=== PATIENT | male | born 1960 | race Caucasian/White ===

== ENCOUNTER 2018-08-19 15:36 | Emergency (ER) | payer OTHER ==
[2018-08-19 16:14] VITALS: BP 145/82
[2018-08-19] MEDS ORDERED: Tetan/Diph/Pertus SYR(Tdap)* 0.5 ML SYR(BOOSTRIX) use SYR IM ONE (17:26)
--- NOTE | 2018-08-19 17:27 | UC ---
Laceration HPI - HPI Summary HPI Summary: 58 y/o male presents to the urgent care c/o patient accidentally sliced left lower thigh while at work with a razor blade aroud 3 pm. Bleeding under control. Last tetanus about 7 years ago. - History Of Current Complaint Chief Complaint: UCLaceration Stated Complaint: LEFT THIGH LAC (WC) Time Seen by Provider: 08/19/18 17:25 Pain Intensity: 2 - Allergies/Home Medications Allergies/Adverse Reactions: Allergies Allergy/AdvReac Type Severity Reaction Status Date / Time No Known Allergies Allergy Verified 08/19/18 16:11 Home Medications: Home Medications PARoxetine HCL TAB* [Paxil TAB*] 10 mg PO DAILY 08/19/18 [History Confirmed ] PMH/Surg Hx/FS Hx/Imm Hx - Social History Alcohol Use: Daily Substance Use Type: None Smoking Status (MU): Former Smoker - Immunization History Most Recent Tetanus Shot: 7 years ago Physical Exam Vital Signs: Initial Vital Signs Temp 98.9 F 08/19/18 16:09 Pulse 95 08/19/18 16:09 Resp 20 08/19/18 16:09 BP 145/82 08/19/18 16:09 Pulse Ox 99 08/19/18 16:09 Discharge - Discharge Plan Referrals: Fred Erickson MD [Primary Care Provider] -
[2018-08-19] MEDS ORDERED: Lidocaine 2% W/EPI 1:100,000* 20 ML MDV INJ ONE (17:29)
--- NOTE | 2018-08-19 17:56 | ED ---
Laceration/Wound HPI - HPI Summary HPI Summary: 58 yr old male with left thigh laceration. Onset 3 pm today. He cut it with a utility knife when working. Last TD 7 yr ago. No imparement of ROM of knee or leg. He was cutting water hose and slipped and knife cut through his work pants. - History of Current Complaint Stated Complaint: LEFT THIGH LAC (WC) Time Seen by Provider: 08/19/18 17:25 Pain Intensity: 2 - Allergy/Home Medications Allergies/Adverse Reactions: Allergies Allergy/AdvReac Type Severity Reaction Status Date / Time No Known Allergies Allergy Verified 08/19/18 16:11 Home Medications: Home Medications PARoxetine HCL TAB* [Paxil TAB*] 10 mg PO DAILY 08/19/18 [History Confirmed ] PMH/Surg Hx/FS Hx/Imm Hx Infectious Disease History: No Infectious Disease History: Denies: Traveled Outside the [place] in Last 30 Days - Family History Known Family History: Positive: Other - pneumonia - Social History Occupation: Employed Full-time Lives: With Family Alcohol Use: Daily Substance Use Type: Reports: None Smoking Status (MU): Former Smoker Review of Systems Constitutional: Negative Eyes: Negative ENT: Negative Positive: Other - laceration All Other Systems Reviewed And Are Negative: Yes Physical Exam Triage Information Reviewed: Yes Vital Signs On Initial Exam: Initial Vitals Temp Pulse Resp BP Pulse Ox 98.9 F 95 20 145/82 99 08/19/18 16:09 08/19/18 16:09 08/19/18 16:09 08/19/18 16:09 08/19/18 16:09 Vital Signs Reviewed: Yes Appearance: Positive: Well-Appearing, No Pain Distress Skin: Positive: Other - 5 cm laceration through the distal medial thigh Eyes: Positive: EOMI ENT: Positive: Normal ENT inspection Neck: Positive: Nontender Respiratory/Lung Sounds: Positive: Clear to Auscultation, Breath Sounds Present Cardiovascular: Positive: RRR, Pulses are Symmetrical in both Upper and Lower Extremities - intact DP and PT pulses left foot. Negative: Murmur Abdomen Description: Positive: Nontender Musculoskeletal: Positive: Strength/ROM Intact Neurological: Positive: Sensory/Motor Intact, Alert, Oriented to Person Place, Time, CN Intact II-III Psychiatric: Positive: Normal - Herron Coma Scale Best Eye Response: 4 - Spontaneous Best Motor Response: 6 - Obeys Commands Best Verbal Response: 5 - Oriented Coma Scale Total: 15 Procedures - Laceration/Wound Repair 1 Location: lower extremity Description: Linear Anesthesia: 2.0%, Epi Length, Depth and Shape: 5 cm deep linear, clean, and through sub cutaneous tissue into the very superficial mucle about 3 mm. Betadine Prep?: Yes Irrigated w/ Saline (ccs): 500 Laceration/Wound Explored: clean Closure: Multilayer, Jhonatan #__ - 7 Suture Type: Vicryl Number of Sutures: 8 - 4 deep to close muscle and aponeurosis, and then 4 to close subcutaneous. Layer Closure?: Yes Sterile Dressing Applied?: Yes - tolerated well. Diagnostics - Vital Signs Vital Signs Temp Pulse Resp BP Pulse Ox 08/19/18 16:09 98.9 F 95 20 145/82 99 - Laboratory Lab Statement: Any lab studies that have been ordered have been reviewed, and results considered in the medical decision making process. Laceration Repair Course/Dx - Course Course Of Treatment: 58 yr old male with mulitlayer closure of distal medial thigh wound. Good approximation achieved. DC home. FU in 14 days for staple removal. Off from work this week to rest, elevate leg. - Clinical Impression Provider Diagnoses: Laceration of thigh, left, complicated, Hypertension Discharge - Sign-Out/Discharge Documenting (check all that apply): Patient Departure All imaging exams completed and their final reports reviewed: No Studies - Discharge Plan Condition: Good Disposition: HOME Patient Education Materials: Laceration (ED) Forms: *Work Release Referrals: Fred Erickson MD [Primary Care Provider] - Additional Instructions: [place] out in 14 days. - Billing Disposition and Condition Condition: GOOD Disposition: Home
== END 2018-08-19 18:41 | disposition home or self-care (01) ==
LOC: UCCORT 15:36
DX: S71.112A Laceration without foreign body, left thigh, initial encounter (principal); W26.0XXA Contact with knife, initial encounter; Y93.89 Activity, other specified; Y92.9 Unspecified place or not applicable; Y99.0 Civilian activity done for income or pay; Z23 Encounter for immunization; Z87.891 Personal history of nicotine dependence
CPT/HCPCS: 13121; 90471; 90715; 99201; G0463

== ENCOUNTER 2018-09-03 14:06 | Emergency (ER) | payer OTHER ==
--- OUTSIDE RECORDS SUMMARY | 2018-09-03 14:12 | XMS REPORT ---
:1960 External Reference #:[id number] Author Organization [facility] Address [address] [address] Phone [phone] Care Team Providers Name Role Phone Fred Erickson MD Care Team Information Credit Rating Checker Unavailable Payers Type Date Identification Numbers Payment Provider Subscriber Workers Compensation Effective: PayID: [id number] Workers' Comp Shaheed Conrad 2018 () Medigap Part B Policy Number: Lifetime Benefit Marie Ramírez [id number] [facility] Group Number: [id number] [address] [id number] PayID: THANG Chen [id number] Workers Compensation Onset: 2017 Policy Number: [place] Shaheed Conrad [id number] PayID: [id number] [address] [id number] [place] [address] Problems Date Description Provider Status Onset: 06/27/2013 Anxiety state Fred Erickson MD Active Onset: 06/27/2013 Insomnia Fred Erickson MD Active Onset: 12/02/2010 Vitamin D deficiency Fred Erickson MD Active Onset: 12/02/2010 Tobacco user Fred Erickson MD Active Onset: 12/02/2010 Adult health examination Fred Erickson MD Active Onset: 03/14/2017 Pure hypercholesterolemia Fred Erickson MD Active Onset: 03/14/2017 Essential hypertension Fred Erickson MD Active Family History Date Family Member(s) Problem(s) Comments Father Cancer, Skin melanoma Father Hypercholesterolemia Father Angina Father Parkinson's Disease Onset early 70s Paternal Grandfather [place] 54 Social History Type Date Description Comments Education Highest level completed, 12th grade Marital Status Lives With Spouse Smoke-Free Home is not smoke-free Occupation [employer] ETOH Use Currently consumes alcohol Consumes 2 beers per day Smoking Patient is a former smoker QUIT ; SMOKED 1PPD x 20-30 YRS Daily Caffeine Consumes on average 4 cups of coffee per day Allergies, Adverse Reactions, Alerts Date Description Reaction Status Severity Comments 12/31/2014 NKDA active Medications Medication Date Status Form Strength Qnty SIG Indications Ordering Provider Work Excuse Hx He missed Z68.25 Dre 018 - work from MD Fred 08/19 thru 018 08/25 due to work injury; return Sunday 08/26 at full duty Paroxetine HCL Active Tablets 20mg 90tabs take one F41.9 Dre, 013 tablet by MD Fred mouth at bedtime F41.1 8 Hour Pain 09/06/2012 Active Tablets ER 650mg 1 po QHRS Unknown Relief prn Pain [facility] Vitamin D3 12/02/2010 Active Capsules 1000Unit 1 po qd E55. Fred Hines MD Famotidine Active Tablets 20mg OTC 1 PO bid 530. Unknown 81 Amoxicillin/Cl 04/02/2017 - Hx Tablets 875-125mg 30tabs 1 by Dre avulanate 05/11/2017 Fred johnson, Potassium twice a dayX10 Days Immunizations CPT Code Status Date Vaccine Reaction Lot # [id number] Given 08/19/2018 Tdap (Adacel) Ages 7 And Above Only URGENT [facility]ARE [address] Given 03/29/2017 Tdap (Adacel) Ages 7 And Above Only 10745 Given 07/25/2013 Afluria Or Fluvirin Flu Vac Intramuscular [id number] Refused 08/23/2018 Flu Vaccine NOS WILL GET AT PHARMACY Vital Signs Date Vital Result Comment 08/23/2018 Weight 180.00 lb Heart Rate 72 /min BP Systolic 130 mmHg BP Diastolic 80 mmHg Respiratory Rate 18 /min Height 70 inches 5'10" BMI (Body Mass Index) 25.8 kg/m2 05/21/2018 Weight 180.00 lb Heart Rate 88 /min BP Systolic 138 mmHg BP Diastolic 96 mmHg BP Systolic Recheck 140 mmHg L at rest 02:45 PM BP Diastolic Recheck 90 mmHg L at rest 02:45 PM Respiratory Rate 16 /min Height 70 inches 5'10" BMI (Body Mass Index) 25.8 kg/m2 11/13/2017 Weight 180.00 lb With Shoes Heart Rate 74 /min BP Systolic 130 mmHg BP Diastolic 90 mmHg Respiratory Rate 18 /min Height 70 inches 5'10" BMI (Body Mass Index) 25.8 kg/m2 05/11/2017 Weight 180.00 lb Heart Rate 72 /min BP Systolic 140 mmHg PT Cuff 154/105 BP Diastolic 96 mmHg PT Cuff 154/105 Respiratory Rate 18 /min Height 70 inches 5'10" BMI (Body Mass Index) 25.8 kg/m2 04/02/2017 Weight 178.00 lb Heart Rate 74 /min BP Systolic 154 mmHg BP Diastolic 98 mmHg Respiratory Rate 18 /min Height 70 inches 5'10" BMI (Body Mass Index) 25.5 kg/m2 03/14/2017 Weight 178.00 lb Heart Rate 72 /min BP Systolic 140 mmHg BP Diastolic 90 mmHg BP Systolic Recheck 144 mmHg L at rest BP Diastolic Recheck 90 mmHg L at rest Respiratory Rate 18 /min Height 70 inches 5'10" BMI (Body Mass Index) 25.5 kg/m2 02/23/2016 Weight 178.00 lb Heart Rate 80 /min BP Systolic 144 mmHg BP Diastolic 90 mmHg BP Systolic Recheck 152 mmHg L at rest; R 154/90 BP Diastolic Recheck 90 mmHg L at rest; R 154/90 Respiratory Rate 18 /min Height 70 inches 5'10" BMI (Body Mass Index) 25.5 kg/m2 02/15/2015 Weight 166.00 lb Up 3# Heart Rate 78 /min BP Systolic 134 mmHg L/Reg BP Diastolic 86 mmHg L/Reg BP Systolic Recheck 130 mmHg BP Diastolic Recheck 80 mmHg Respiratory Rate 16 /min Height 70 inches 5'10" BMI (Body Mass Index) 23.8 kg/m2 02/13/2014 BP Systolic 124 mmHg BP Diastolic 74 mmHg 02/13/2014 Body Temperature 98.6 F Weight 163.00 lb Heart Rate 76 /min BP Systolic 140 mmHg BP Diastolic 82 mmHg Respiratory Rate 18 /min Height 69.50 inches 5'9.50" Results Test Date Test Result H/L Range Note Basic ([facility]) 05/15/2018 Sodium 141 mmol/L 135-146 1, 2 Potassium 4.3 mmol/L 3.5-5.2 1 Chloride# 108 mmol/L 97-110 1, 3 Carbon Dioxide 24 mmol/L 24-34 1 Glucose 120 mg/dL High 70-105 1 BUN 15 mg/dL 6-26 1 Creatinine 1.3 mg/dL 0.5-1.4 1 Calcium 9.3 mg/dL 8.5-10.2 1 Non Dayana Egfr 59 Low >60 1, 4 Dayana Egfr >60 >60 1, 5 Anion Gap 9 mmol/L 5-15 1, 6 Laboratory test finding 05/15/2018 Vitamin D 25 Hydroxy 42 ng/mL 30-100 1, 7 Lipid Treatment 05/15/2018 Cholesterol 230 mg/dL High 50-199 1 Triglycerides 262 mg/dL High 30-200 1 HDL 46 mg/dL 29-71 1, 8 Chol/ HDL Ratio 5.0 ratio 4.0-6.7 1 VLDL 52 mg/dL High 2-29 1 LDL (Calc) 132 mg/dL High 20-99 1, 9 Alt 37 U/L 3-42 1 Ast 25 U/L 8-42 1 Laboratory test 05/15/2018 Hepatitis C NON REACTIVE Non Reactive 1, 10 finding Virus Antibody S/CORatio([facility] PSA 1.120 ng/mL 0.000-4.000 1, 11 Basic ([facility]) 03/16/2017 Sodium 143 mmol/L 135-146 12 Potassium 4.1 mmol/L 3.5-5.2 Chloride# 107 mmol/L 97-110 13 Carbon Dioxide 26 mmol/L 24-34 Glucose 91 mg/dL 70-105 BUN 20 mg/dL 6-26 Creatinine 1.3 mg/dL 0.5-1.4 Calcium 9.3 mg/dL 8.5-10.2 Non Dayana Egfr 60 Low >60 14 Dayana Egfr >60 >60 15 Anion Gap 14 mmol/L 7-16 16 Laboratory test finding 03/16/2017 Vit D,25 Hydroxy 32 ng/mL 31-100 Cholesterol 208 mg/dL High 50-199 HDL 43 mg/dL 29-71 17 PSA 0.420 ng/mL 0.000-4.000 18 Laboratory test finding 02/24/2016 Cholesterol 230 mg/dL High 50-199 HDL 42 mg/dL 29-71 19 Vit D,25 Hydroxy 27 ng/mL Low 31-100 PSA 0.570 ng/mL 0.000-4.000 20 Basic ([facility]) 02/24/2016 Sodium 137 mmol/L 134-142 Potassium 4.1 mmol/L 3.5-5.2 Chloride 106 mmol/L 97-109 Carbon Dioxide 25 mmol/L 24-34 Glucose 92 mg/dL 70-105 BUN 20 mg/dL 6-26 Creatinine 1.3 mg/dL 0.5-1.4 Calcium 9.4 mg/dL 8.5-10.2 Anion Gap 10 mmol/L 6-14 Non Dayana Egfr 60 Low >60 21 Dayana Egfr >60 >60 22 Basic ([facility]) 02/17/2015 Sodium 140 mmol/L 134-142 23 Potassium 4.3 mmol/L 3.5-5.2 23 Chloride 108 mmol/L 97-109 23 Carbon Dioxide 25 mmol/L 24-34 23 Glucose 91 mg/dL 70-105 23 BUN 20 mg/dL 6-26 23 Creatinine 1.1 mg/dL 0.5-1.4 23 Calcium 9.4 mg/dL 8.5-10.2 23 Anion Gap 11 mmol/L 6-14 23 Non Dayana Egfr >60 >60 23, 24 Dayana Egfr >60 >60 23, 25 Laboratory test finding 02/17/2015 Vit D,25 Hydroxy 45 ng/mL 31-100 23 PSA 0.480 ng/mL 0.000-4.000 23, 26 Cholesterol 198 mg/dL 50-199 23 HDL 44 mg/dL -71 23, 27 Laboratory test finding 02/13/2014 Anion Gap 9 mEq/L 8-16 BUN 13 mg/dL 5-23 BUN/Creat 10.8 ratio Calcium 8.7 mg/dL 8.5-10.1 Carbon Dioxide 29 mEq/L 18-29 Chloride 106 mmol/L 98-107 Cholesterol 145 mg/dL 120-200 Creatinine 1.2 mg/dL 0.5-1.4 Glom Filtration Rate, Estimate >60 mL/min >60 Glucose 76 mg/dL 76-115 HDL Cholesterol 37 mg/dL 29-83 If >60 mL/min >60 28 Potassium 4.1 mmol/L 3.5-5.1 Prostate Specific Antigen 0.51 ng/mL 0.00-4.00 29 Sodium 140 mmol/L 136-145 Vitamin D,25-Hydroxy 38.4 ng/mL 30.0-100.0 30 Laboratory test finding 02/11/2013 BUN 22.0 mg/dL High 9.0-21.0 BUN/Creat Ratio 16.9 ratio 12.0-20.0 Calcium 9.8 mg/dL 8.7-10.5 Chloride 106.0 mmol/L 98.0-107.0 Co2 27.0 mmol/L 22.0-30.0 Creatinine-Serum 1.3 mg/dL 0.8-1.5 Glucose 98.0 mg/dL 75.0-110.0 PSA 0.6 ng/mL 0.0-4.0 Potasium 4.4 mmol/L 3.6-5.0 Sodium 144.0 mmil/L 137.0-145.0 Vitamin D 46.6 ng/mL 30.0-100.0 eGFR 61.6 1 05/15 preOV 2 Updated reference range on new analyzer 3 Updated reference range on new analyzer 4 Concerning GFR Guidelines: Normal function or mild renal disease, if clinically at risk: >/=60 mL/min Moderately decreased: 30-59 Severely decreased: 15-29 Renal failure: <15 Glomerular Filtration Rate (GFR) is estimated based on the MDRD equation, which assumes a steady state for creatinine as recommended by the National Kidney Disease Education Program in conjunction with the National Institutes of Health and the National Kidney Foundation. Clinical conditions in which it may be necessary to measure GFR by using clearance methods include extremes of age and body size, severe malnutrition or obesity, diseases of skeletal muscle, paraplegia or quadriplegia, vegetarian diet, rapidly changing kidney function, and calculation of the dose of potentially toxic drugs that are excreted by the kidneys. 5 Concerning GFR Guidelines for Americans: Normal function or mild renal disease, if clinically at risk: >/=60 mL/min Moderately decreased: 30-59 Severely decreased: 15-29 Renal failure: <15 6 Updated Reference Range 7 Clinical Guidelines for recommended serum 25(OH)Vitamin D Deficient at less than 20 ng/mL Insufficient at 20 to <30 ng/mL Sufficient at 30-100 ng/mL Toxicity at greater than 100 ng/mL 8 Per NCEP ATP III Guidelines: Results lower than 40 mg/dL are suggestive of increased risk for coronary artery disease. Results > or=to 60 mg/dL are considered a negative risk factor. 9 Per NCEP ATP III Guidelines: Normal Population <130 Patients with medical conditions: CHD/DM Optimal: <100 Borderline high: 130-159 High: 160-189 Very high: >189 10 S/CO Ratio >/=1.0 is REACTIVE. S/CO <5.0 is Low Reactive. S/CO >/= 5.0 is High Reactive. Effective Jun 22, 2017 all anti-HCV reactive samples are sent for quantitative PCR confirmation. 11 Beginning 12/24/06 PSA values assayed at [facility] [employer] [facility] [employer] uses chemiluminescence methodology manufactured by [employer] for use on the DXI analyzer. Values obtained with different assay methods or kits can not be used interchangeably. Serum PSA measurement is not an absolute test for malignancy. The PSA value should be used in conjunction with information available from clinical evaluation and other diagnostic procedures. 12 Updated reference range on new analyzer 13 Updated reference range on new analyzer 14 Concerning GFR Guidelines: Normal function or mild renal disease, if clinically at risk: >/=60 mL/min Moderately decreased: 30-59 Severely decreased: 15-29 Renal failure: <15 Glomerular Filtration Rate (GFR) is estimated based on the MDRD equation, which assumes a steady state for creatinine as recommended by the National Kidney Disease Education Program in conjunction with the National Institutes of Health and the National Kidney Foundation. Clinical conditions in which it may be necessary to measure GFR by using clearance methods include extremes of age and body size, severe malnutrition or obesity, diseases of skeletal muscle, paraplegia or quadriplegia, vegetarian diet, rapidly changing kidney function, and calculation of the dose of potentially toxic drugs that are excreted by the kidneys. 15 Concerning GFR Guidelines for Americans: Normal function or mild renal disease, if clinically at risk: >/=60 mL/min Moderately decreased: 30-59 Severely decreased: 15-29 Renal failure: <15 16 Updated reference range on new analyzer 17 Per NCEP ATP III Guidelines: Results lower than 40 mg/dL are suggestive of increased risk for coronary artery disease. Results > or=to 60 mg/dL are considered a negative risk factor. 18 Beginning 12/24/06 PSA values assayed at [facility] [employer] uses chemiluminescence methodology manufactured by [employer] for use on the DXI analyzer. Values obtained with different assay methods or kits can not be used interchangeably. Serum PSA measurement is not an absolute test for malignancy. The PSA value should be used in conjunction with information available from clinical evaluation and other diagnostic procedures. 19 Per NCEP ATP III Guidelines: Results lower than 40 mg/dL are suggestive of increased risk for coronary artery disease. Results > or=to 60 mg/dL are considered a negative risk factor. 20 Beginning 12/24/06 PSA values assayed at [facility] uses chemiluminescence methodology manufactured by [employer] for use on the DXI analyzer. Values obtained with different assay methods or kits can not be used interchangeably. Serum PSA measurement is not an absolute test for malignancy. The PSA value should be used in conjunction with information available from clinical evaluation and other diagnostic procedures. 21 Concerning GFR Guidelines: Normal function or mild renal disease, if clinically at risk: >/=60 mL/min Moderately decreased: 30-59 Severely decreased: 15-29 Renal failure: <15 Glomerular Filtration Rate (GFR) is estimated based on the MDRD equation, which assumes a steady state for creatinine as recommended by the National Kidney Disease Education Program in conjunction with the National Institutes of Health and the National Kidney Foundation. Clinical conditions in which it may be necessary to measure GFR by using clearance methods include extremes of age and body size, severe malnutrition or obesity, diseases of skeletal muscle, paraplegia or quadriplegia, vegetarian diet, rapidly changing kidney function, and calculation of the dose of potentially toxic drugs that are excreted by the kidneys. 22 Concerning GFR Guidelines for Americans: Normal function or mild renal disease, if clinically at risk: >/=60 mL/min Moderately decreased: 30-59 Severely decreased: 15-29 Renal failure: <15 23 soon 24 Concerning GFR Guidelines: Normal function or mild renal disease, if clinically at risk: >/=60 mL/min Moderately decreased: 30-59 Severely decreased: 15-29 Renal failure: <15 Glomerular Filtration Rate (GFR) is estimated based on the MDRD equation, which assumes a steady state for creatinine as recommended by the National Kidney Disease Education Program in conjunction with the National Institutes of Health and the National Kidney Foundation. Clinical conditions in which it may be necessary to measure GFR by using clearance methods include extremes of age and body size, severe malnutrition or obesity, diseases of skeletal muscle, paraplegia or quadriplegia, vegetarian diet, rapidly changing kidney function, and calculation of the dose of potentially toxic drugs that are excreted by the kidneys. 25 Concerning GFR Guidelines for Americans: Normal function or mild renal disease, if clinically at risk: >/=60 mL/min Moderately decreased: 30-59 Severely decreased: 15-29 Renal failure: <15 26 Beginning 12/24/06 PSA values assayed at [facility] [employer] uses an EIA methodology manufactured by [employer] for use on the DXI analyzer. Values obtained with different assay methods or kits can not be used interchangeably. Serum PSA measurement is not an absolute test for malignancy. The PSA value should be used in conjunction with information available from clinical evaluation and other diagnostic procedures. 27 Per NCEP ATP III Guidelines: Results lower than 40 mg/dL are suggestive of increased risk for coronary artery disease. Results > or=to 60 mg/dL are considered a negative risk factor. 28 Note: Persistent reduction for 3 months or more in an eGFR <60 mL/min/1.73 m2 defines CKD. Patients with eGFR values >/=60 mL/min/1.73 m2 may also have CKD if evidence of persistent proteinuria is present. The original MDRD equation for estimated GFR is not valid for patients less than 18 years of age. Additional information may be found at www.kdoqi.org. 29 THIS ASSAY IS NOT INTENDED A CANCER SCREENING TEST The concentration of PSA in a given specimen, determined with assays from different manufacturers, can vary due to differences in assay methods and reagent specificity. Values obtained from different assay methods cannot be used interchangeably. 30 Vitamin D deficiency has been defined by the [place] of [employer] and an Endocrine Society practice guideline as a level of serum 25-OH vitamin D less than 20 ng/mL (1,2). The Endocrine Society went on to further define vitamin D insufficiency as a level between 21 and 29 ng/mL (2). 1. IOM ([place] of [employer]). 2010. Dietary reference intakes for calcium and D. [place]: The National Academies Press. 2. Edith MF, Donnie NC, Daniella-Juve WOLF, et al. Evaluation, treatment, and prevention of vitamin D deficiency: an Endocrine Society clinical practice guideline. JCEM. 2010; 96(7):1911-30. Performed at: - [facility] [address] [id number] [place]: Emily Hubbard MD, Phone: [phone] Procedures Date CPT Code Description Status Comment 04/19/2017 Colonoscopy Completed 04/14: DR RUIZ - HP POLYPS 02/15/2015 69014 Screening Hearing Test Completed Encounters Type Date Location Provider CPT E/M Dx Office Visit 05/21/2018 2:15p [facility] [place] [address] I10 E78.00 E55.9 R73.01 F41.1 Z68.25 Office Visit 11/13/2017 4:15p [facility] [place] [address] I10 E55.9 E78.00 G47.00 Z11.59 Z12.5 Office Visit 05/11/2017 2:15p [facility] [place] [address] I10 Office Visit 04/02/2017 9:30a [facility] [place] [place] [address] S61.204A S61.204A Office Visit 03/14/2017 3:45p [facility] [place] [place] [address] Z00.00 I10 E55.9 F41.9 G47.00 E78.00 Z12.11 Z12.5 Office Visit 02/23/2016 3:45p [facility] [place] [place] [address] Z00.00 F41.9 G47.00 E55.9 Z12.5 Z12.11 R03.0 Office Visit 02/15/2015 3:00p [facility] [place] [place] [address] V70.0 268.9 300.00 780.52 V73.89 V76.44 V76.51 V77.91 389.9 Plan of Care Future Appointment(s):11/18/2018 8:05 am - Schedule, Laboratory at [facility]2018 2:15 pm - Fred Erickson MD at [facility]08/23/2018 - Fred Erickson MDS71.112A Laceration without foreign body, LEFT thigh, init encntrFollow up: Follow up as vcekwcddiT46.25 Body mass index (BMI) 25.0-25.9, adultNew Medication:Work ExcuseFollow up:Follow up as scheduled
[2018-09-03 14:13] VITALS: BP 170/92
--- NOTE | 2018-09-03 14:31 | UC ---
HPI Wound/Suture Re-check - HPI Summary HPI Summary: here for jeanne removal from the left leg sutures were placed here at the urgent care about 2 weeks ago laceration is healing well, no pain , no discharge, no redness - History Of Current Complaint Chief Complaint: UCGeneralIllness Stated Complaint: SUTURE REMOVAL Time Seen by Provider: 09/03/18 14:16 Hx Obtained From: Patient Onset/Duration: Sudden Onset, Lasting Weeks - 2, Still Present Severity: Moderate Pain Intensity: 0 Pain Scale Used: 0-10 Numeric Procedure Type: jeanne removal - Allergies/Home Medications Allergies/Adverse Reactions: Allergies Allergy/AdvReac Type Severity Reaction Status Date / Time No Known Allergies Allergy Verified 09/03/18 14:11 PMH/Surg Hx/FS Hx/Imm Hx Psychological History: Anxiety - Surgical History Surgical History: None - Family History Known Family History: Positive: Other - pneumonia Negative: Diabetes - Social History Alcohol Use: Daily Substance Use Type: None Smoking Status (MU): Former Smoker - Immunization History Most Recent Tetanus Shot: 7 years ago Review of Systems Constitutional: Negative Skin: Negative Eyes: Negative ENT: Negative Respiratory: Negative Is Patient Immunocompromised?: No All Other Systems Reviewed And Are Negative: Yes Physical Exam Triage Information Reviewed: Yes Appearance: Well-Appearing, No Pain Distress, Well-Nourished Vital Signs: Initial Vital Signs Temp 97.8 F 09/03/18 14:10 Pulse 78 09/03/18 14:10 Resp 14 09/03/18 14:10 BP 170/92 09/03/18 14:10 Pulse Ox 100 09/03/18 14:10 Vital Signs Reviewed: Yes Eye Exam: Normal Eyes: Positive: Conjunctiva Clear ENT: Positive: Normal ENT inspection, Hearing grossly normal, Pharynx normal Neck exam: Normal Neck: Positive: Supple, Nontender Respiratory: Positive: Chest non-tender, Lungs clear, Normal breath sounds Cardiovascular: Positive: RRR, No Murmur, Pulses Normal Skin: Positive: Other - 3 cm laceration left leg mutiple staplese are intact laceration is healing well, no signs of infection jeanne were removed using a staple remover Course/Dx - Differential Dx - Laceration/Wound Provider Diagnoses: suture removal. laceration left leg Discharge - Sign-Out/Discharge Documenting (check all that apply): Patient Departure All imaging exams completed and their final reports reviewed: No Studies - Discharge Plan Condition: Stable Disposition: HOME Patient Education Materials: Acute Wound Care (ED), Stitches Removal (ED) Referrals: Fred Erickson MD [Primary Care Provider] - If Needed - Billing Disposition and Condition Condition: STABLE Disposition: Home
== END 2018-09-03 14:25 | disposition home or self-care (01) ==
LOC: UCCORT 14:06
DX: Z48.02 Encounter for removal of sutures (principal); Z87.891 Personal history of nicotine dependence; Z72.89 Other problems related to lifestyle